=== PATIENT | male | born 1980 | race Caucasian/White ===

== ENCOUNTER 2024-01-14 05:00 | Emergency (ER) | payer OTHER ==
[~2024-01-14] VITALS: Ht 175.3 cm; Wt 68.0 kg
[2024-01-14 05:09] VITALS: BP_SYST 137; PULSE 79; RESP 19; TEMP 96.9; O2SAT 100
[2024-01-14] MEDS: NACL 0.9% 1,000 ML IV ONE (05:37)
[2024-01-14] MEDS: KETOROLAC TROMETHAMINE 30 MG VIAL IVP ONE (05:38)
[2024-01-14] MEDS: ONDANSETRON HCL 4 MG/2 ML VIAL IVP ONE (05:39)
[2024-01-14 05:40] LABS: BASOPHILS % (AUTO) 0.4 % (0.0-2.0); EOSINOPHILS # (AUTO) 0.1 K/uL (0.0-0.4); EOSINOPHILS % (AUTO) 0.9 % (0.0-4.0); HEMATOCRIT 42.7 % (36-54); HEMOGLOBIN 15.2 g/dL (14.0-18.0); LYMPHOCYTES # (AUTO) 1.5 K/uL (1.0-5.5); LYMPHOCYTES % (AUTO) 14.1 % (20.5-51.5); MEAN CORPUSCULAR HEMOGLOBIN 32 pg (27-31); MEAN CORPUSCULAR HGB CONC 36 % (32-36); MEAN CORPUSCULAR VOLUME 89 fL (79.0-98.0); MONOCYTES # (AUTO) 0.6 K/uL (0.0-1.0); MONOCYTES % (AUTO) 5.5 % (1.7-9.3); NEUTROPHILS # (AUTO) 8.5 K/uL (1.8-7.7); NEUTROPHILS % (AUTO) 79.1 % (40.0-70.0); PLATELET COUNT (AUTO) 248 K/uL (130-430); RED BLOOD CELL COUNT(AUTO) 4.78 MIL/uL (4.2-6.2); RED CELL DISTRIBUTION WIDTH 13.2 % (9.0-15.0); WHITE BLOOD COUNT (AUTO) 10.7 K/uL (4.8-10.8)
[2024-01-14 06:01] LABS: ALBUMIN 4.1 g/dL (3.4-4.8); CALCIUM 8.7 mg/dL (8.4-11.0); CREATININE 1.03 mg/dL (0.55-1.30); POTASSIUM 3.3 mmol/L (3.5-5.1); TOTAL BILIRUBIN 0.5 mg/dL (0.0-1.0); TOTAL PROTEIN, SERUM 7.6 g/dL (6.4-8.3)
[2024-01-14 06:09] LABS: BILIRUBIN,URINE NEGATIVE (NEGATIVE); BLOOD, URINE 3+ (NEGATIVE); CLARITY/URINE CLEAR (CLEAR); COLOR,URINE YELLOW (YELLOW); GLUCOSE,URINE NEGATIVE (NEGATIVE); KETONES,URINE NEGATIVE (NEGATIVE); LEUKOCYTE ESTERASE ,URINE TRACE (NEGATIVE); NITRITE, URINE NEGATIVE (NEGATIVE); PROTEIN URINE NEGATIVE (NEGATIVE); UROBILINOGEN,URINE 0.2 (0.2-1.0)
[2024-01-14 06:24] LABS: BACTERIA,URINE RARE /HPF (None Seen)
[2024-01-14 07:06] LABS: PROTHROMBIN TIME 10.3 SECS (9.5-12.5)
[2024-01-14 07:07] LABS: ALBUMIN 3.5 g/dL (3.4-4.8); CALCIUM 7.6 mg/dL (8.4-11.0); CREATININE 0.9 mg/dL (0.55-1.30); POTASSIUM 3.5 mmol/L (3.5-5.1); TOTAL BILIRUBIN 0.4 mg/dL (0.0-1.0); TOTAL PROTEIN, SERUM 6.6 g/dL (6.4-8.3)
[2024-01-14 07:19] LABS: BILIRUBIN,DIRECT 0.1 mg/dL (0.0-0.3)
[2024-01-14] MEDS ORDERED: IBUP-1971 PO (07:41)
[2024-01-14] MEDS ORDERED: HYDR-3917 PO (07:41)
[2024-01-14 08:14] VITALS: BP_SYST 121; PULSE 86; RESP 18; TEMP 97.3; O2SAT 97
== END 2024-01-14 08:14 | disposition home or self-care (01) ==
LOC: SED 05:00
DX: N23 Unspecified renal colic (principal); R11.0 Nausea; M54.9 Dorsalgia, unspecified
CPT/HCPCS: 99285; 74176; 96374; 96361; 96375; 80053; 81001; 82150; 83690; 85025; 85610; 85730; 36415; 83605; 82397; 80076; 80048; J1885; J2405; J7030; 81000; 81015